=== PATIENT | male | born 1970 ===

== ENCOUNTER 2017-02-13 11:23 | Emergency (ER) | payer SELFPAY ==
--- NOTE | ~2017-02-13 | ER ---
PATIENT'S NAME: [facility] AGE: 46 Y [address] ROOM: [place] [address] LOCATION: ED ADMIT DATE: 02/13/2017 ER/Outpatient Report DISCHARGE DATE: 02/13/2017 FAMILY PHYSICIAN: Physician, Unknown ATTENDING PHYSICIAN: Zhang Schmitt CHIEF COMPLAINT: Bleeding on the right gluteus. HISTORY OF PRESENT ILLNESS: The patient arrives in police custody. He was being booked in a long term. They found a bleeding area and brought him into the ER for evaluation. He states he has had this tender area on his backside for approximately 5 days. He denies any fevers, chills, nausea, or vomiting. He has no chest pain or shortness of breath. He has not tried any medications. He denies any allergies. He has not had this evaluated previously. PAST MEDICAL HISTORY: Documented on the record and reviewed by me. SOCIAL HISTORY: Documented on the record and reviewed by me. MEDICATIONS: Documented on the record and reviewed by me. ALLERGIES: DOCUMENTED ON THE RECORD AND REVIEWED BY ME. REVIEW OF SYSTEMS: All systems were reviewed and negative except as noted in the HPI. PHYSICAL EXAMINATION: VITAL SIGNS: Blood pressure 129/85, pulse 99, respiratory rate 16, temperature 98.1, and SpO2 is 97% on room air. Pain is rated at 7/10. GENERAL: An age-appropriate male, in no obvious distress, in mild discomfort, standing at bedside. NEUROLOGIC: Awake and alert. GCS is 15. No focal deficits. No asymmetry. HEENT: Normocephalic and atraumatic. Eyes are PERRL. Oropharynx is clear. NECK: Supple. Trachea is midline. CHEST: Even and unlabored respirations. HEART: Rate is regular. Borderline tachycardia. ABDOMEN: Soft and nontender. BACK: Normal to inspection and palpation. EXTREMITIES: Warm and well perfused. The right gluteus is notable for what PATIENT'S NAME: EDIN OTTO [facility] AGE: 46 Y [address] ROOM: [place] [id number] LOCATION: ED ADMIT DATE: 02/13/2017 ER/Outpatient Report DISCHARGE DATE: 02/13/2017 FAMILY PHYSICIAN: Physician, Unknown ATTENDING PHYSICIAN: Zhang Schmitt appears to be a large abscess. Ultrasound confirms approximately 12 x 7 cm with loculation. No significant vascular component. No obvious neurologic involvement. It is located on the superior aspect of the gluteus and runs from the beginning of the gluteal cleft laterally across the gluteus. SKIN: Otherwise intact with some surrounding erythema and possible cellulitis at the abscess location. LABORATORY DATA AND X-RAYS: None other than bedside ultrasound confirming abscess. IMPRESSION: Right gluteal abscess. EMERGENCY DEPARTMENT COURSE: The patient was seen and evaluated as above. No particular complaints other than the abscess in question. The abscess was deemed amenable to drainage. The patient gave verbal consent. A total of 6 mL of 1% lidocaine with epinephrine was used to anesthetize the area. On the medial and lateral aspects, each received approximately 1 cm incision with an 11 blade. Then, the loculations were probed and significant amounts of purulent bloody material was expressed through both wounds. Some caseous material associated as well. There was bleeding as expected. A vessel loop was passed from end- to-end subcutaneously and tied in a solomon. This will help facilitate open area. I believe the abscess would be too large to make a single incision, and have adequate drainage and clearance. The patient did tolerate the procedure as well as can be expected. To the best of my ability, all loculations were probed and drained. He is at risk for recurrence and will need to be watched closely. Culture was sent of the expressed material. I discussed the case with Dr. Mancia, provider at the long term and he is comfortable taking care of this in that setting. Recommend ice. Tylenol and ibuprofen as needed for discomfort. Expect marked improvement over the next few days. As there does appear to be a cellulitic component, we will initiate Keflex. It does not appear to be consistent with MRSA. The patient received a dressing and was ultimately discharged from the ER back to the custody of police for booking into long term. All questions answered, and the patient left without further issue. MD BARRIE ARITA/kevin PATIENT'S NAME: EDIN OTTO [facility] AGE: 46 Y [address] ROOM: [place] [address] LOCATION: [facility] ADMIT DATE: 02/13/2017 ER/Outpatient Report DISCHARGE DATE: 02/13/2017 FAMILY PHYSICIAN: , Teresa ATTENDING PHYSICIAN: Zhang Schmitt /[id number] d: 02/13/17 1459 t: 02/17/17 0741, OUTPATIENT REPORT
== END 2017-02-13 12:27 | disposition disaster alternative care site (69) ==
LOC: GMED 11:23
PROC: 0H98XZZ Drainage of Buttock Skin, External Approach (ICD-10-PCS; principal; 2017-02-13)
DX: L02.31 Cutaneous abscess of buttock (principal); F17.210 Nicotine dependence, cigarettes, uncomplicated